=== PATIENT | female | born 1980 | race Caucasian/White ===

== ENCOUNTER 2016-11-11 17:14 | Observation (INO) | payer BC ==
[~2016-11-11] VITALS: Ht 167.6 cm
[2016-11-11 18:40] LABS: BASOPHIL % 0.3 %; EOSINOPHIL # 0.1 K/uL (0.0-0.5); HEMATOCRIT 36.7 % (33.0-46.0); HEMOGLOBIN 13.1 g/dL (11.0-15.0); IMMATURE GRANULOCYTE # 0.1 K/uL (0.0-0.3); IMMATURE GRANULOCYTE % 0.6 %; LYMPHOCYTE # 2.2 K/uL (0.8-4.0); MCH 31.5 pg (27.0-34.0); MCHC 35.7 gm/dL (32.0-36.5); MCV 88.2 fl (83.0-98.0); MONOCYTE # 0.6 K/uL (0.0-1.0); MONOCYTE % 5.4 %; MPV 9.9 fl (9.4-12.4); NEUTROPHIL # (ANC) 8.1 K/uL (1.8-7.8); NEUTROPHIL % 72.7 %; NRBC % 0 /100WBC (0-0.00); PLATELET COUNT 202 K/uL (150-450); RBC 4.16 M/uL (3.50-5.50); RDW-CV 12.8 % (11.9-14.6); WBC 11.1 K/uL (4.0-11.0)
[2016-11-11 19:00] LABS: BILIRUBIN URINE NEGATIVE (NEGATIVE); BLOOD URINE NEGATIVE /UL (NEGATIVE); COLOR URINE YELLOW (YELLOW); GLUCOSE URINE NEGATIVE (NEGATIVE); KETONE URINE NEGATIVE (NEGATIVE); LEUKOCYTES URINE 25 /UL (NEGATIVE); NITRITE URINE NEGATIVE (NEGATIVE); PROTEIN URINE NEGATIVE (NEGATIVE); SPEC GRAVITY URINE 1.015 (1.003-1.035); TURBIDITY URINE 1+ (CLEAR); UROBILINOGEN URINE NORMAL (NORMAL)
[2016-11-11 19:02] LABS: ALBUMIN 2.9 gm/dL (3.5-5.0); ALK PHOS 64 IU/L (33-138); ALT 43 IU/L (12-78); ANION GAP 12.7 (10.0-19.0); AST 26 IU/L (10-40); BLOOD UREA NITROGEN 7 mg/dL (6-24); CALCIUM 8.2 mg/dL (8.5-10.5); CHLORIDE 108 mMol/L (96-110); CO2 22 mMol/L (22-32); CREATININE 0.4 mg/dL (0.5-1.1); POTASSIUM 3.7 mMol/L (3.7-5.1); SODIUM 139 mMol/L (135-145); TOTAL BILIRUBIN 0.3 mg/dL (0.0-1.5); TOTAL PROTEIN 6.5 g/dL (6.0-8.4)
[2016-11-11 19:06] LABS: BACTERIA URINE RARE (NEGATIVE); RBC URINE RARE #/HPF (NEGATIVE); WBC URINE 0-2 #/HPF (NEGATIVE)
[2016-11-11] MEDS ORDERED: PRENATAL 1+1)(P1 TAB PO (19:08)
[2016-11-11] MEDS ORDERED: LEXAPRO20 MG PO (19:09)
[2016-11-11] MEDS ORDERED: ALDOMET250 MG PO (19:10)
--- NOTE | 2016-11-12 18:00 | NUR ---
11/12/16 1800 fbs-80's. 2 hr pp Accuchecks 110's.
--- NOTE | 2016-11-12 18:00 | NUR ---
Last VS: T: P: R: 16 BP: 114/60 Pain ratin. Last pain med: Tylenol Medicated at: in am Effective: FHT:145-150 Dilatation: Effacement %: Station: Significant event:24 hr Ua for protein/creat. cl. and ends @ 1845 tonight. Call Juanito w/ results. BP 100's/60's-130's/70's. Voids in good amts.
[2016-11-12 20:07] LABS: URINE CREAT VOL 4350 mL
== END 2016-11-12 20:34 | disposition disaster alternative care site (69) ==
LOC: GOBM 17:14 → GOBS 17:14 → GOBM 17:15 → GOBS 17:15
PROVIDERS: ADMIT Obstetrics & Gynecology
DX: O13.2 Gestational [pregnancy-induced] hypertension without significant proteinuria, second trimester (principal); O24.419 Gestational diabetes mellitus in pregnancy, unspecified control; Z3A.27 27 weeks gestation of pregnancy
CPT/HCPCS: G0378; G0463